=== PATIENT | female | born 1965 | race African-American/Black ===

== ENCOUNTER 2020-03-21 12:57 | Emergency (ER) | payer SELFPAY ==
[~2020-03-21] VITALS: Ht 162.6 cm; Wt 56.8 kg
[~2020-03-21 12:57] MED LIST: CLIN150C14 PO; HYDR12.58 PO; PENI500T PO; PRED20TA PO; TRAM-48 PO
[2020-03-21] MEDS ORDERED: diphenhydrAMINE 50 MG/ML VIAL IVP ONE (13:30)
[2020-03-21] MEDS ORDERED: cloNIDine HCL 0.1 MG TABLET PO ONE (13:30)
[2020-03-21] MEDS ORDERED: SMZ/TMP 800/160MG TABLET. PO ONE (13:30)
[2020-03-21] MEDS ORDERED: methylPREDNISolone SOD SUCC PF 125 MG/2 ML VIAL. IV ONE (13:30)
[2020-03-21] MEDS ORDERED: FAMOTIDINE 20 MG/2 ML VIAL IVP ONE (13:30)
[2020-03-21] MEDS ORDERED: IV NORMAL SALINE 1000ML BAG 1,000 ML IV ONE (13:30)
[2020-03-21] MEDS ORDERED: PRED50TA PO (16:07)
[2020-03-21] MEDS ORDERED: FAMO20TA5 PO (16:07)
[2020-03-21] MEDS ORDERED: DIPH25CA58 PO (16:07)
[2020-03-21] MEDS ORDERED: HYDR12.58 PO (16:07)
--- NOTE | 2020-03-21 16:07 | PHYS DOC ---
Past Medical History Past Medical History: Hypertension, Other Additional Past Medical Histor: uncontrolled Past Surgical History: Other Additional Past Surgical Histo: one ovary and one tube removed Smoking Status: Never Smoker Alcohol Use: Occasionally Drug Use: None General Adult EDM: Chief Complaint: EYE PROBLEMS HPI: HPI: Patient is a 54 year old female patient presenting to the ED today with left eye swelling that began 3 days ago after she got stung by a wasp. Patient denies any difficulty breathing or swallowing throat or tongue swelling. She is also requesting a refill for her blood pressure medication which she ran out a couple days ago. Review of Systems: Review of Systems: Constitutional: Denies fever or chills. [] Eyes: Reports left eye swelling from a wasp sting. Denies change in visual acuity. [] HENT: Denies nasal congestion or sore throat. [] Respiratory: Denies cough or shortness of breath. [] Cardiovascular: Denies chest pain or edema. [] GI: Denies abdominal pain, nausea, vomiting, bloody stools or diarrhea. [] : Denies dysuria. [] Musculoskeletal: Denies back pain or joint pain. [] Integument: Denies rash. [] Neurologic: Denies headache, focal weakness or sensory changes. [] Endocrine: Denies polyuria or polydipsia. [] Lymphatic: Denies swollen glands. [] Psychiatric: Denies depression or anxiety. [] Heart Score: Risk Factors: Risk Factors: DM, Current or recent (<one month) smoker, HTN, HLP, family history of CAD, obesity. Risk Scores: Score 0 - 3: 2.5% MACE over next 6 weeks - Discharge Home Score 4 - 6: 20.3% MACE over next 6 weeks - Admit for Clinical Observation Score 7 - 10: 72.7% MACE over next 6 weeks - Early Invasive Strategies Current Medications: Current Medications Medications (Trade) Dose Ordered Sig/Lyndon Start Time Stop Time Status Last Admin Dose Admin Clonidine HCl (Catapres) 0.2 mg 1X ONCE 03/21/20 13:30 03/21/20 13:39 DC 03/21/20 14:03 0.2 MG Diphenhydramine HCl (Benadryl) 25 mg 1X ONCE 03/21/20 13:30 03/21/20 13:39 DC 03/21/20 14:04 25 MG Famotidine (Pepcid Vial) 20 mg 1X ONCE 03/21/20 13:30 03/21/20 13:39 DC 03/21/20 14:04 20 MG Methylprednisolone Sodium Succinate (SOLU-Medrol 125MG VIAL) 125 mg 1X ONCE 03/21/20 13:30 03/21/20 13:39 DC 03/21/20 14:04 125 MG Sodium Chloride 1,000 ml @ 1,000 mls/hr 1X ONCE 03/21/20 13:30 03/21/20 14:29 DC 03/21/20 14:03 1,000 MLS/HR Trimethoprim/ Sulfamethoxazole (Bactrim Ds) 1 tab 1X ONCE 03/21/20 13:30 03/21/20 13:39 DC 03/21/20 14:03 1 TAB Allergies: Allergies: Allergies Coded Allergies Type Severity Reaction Last Updated Verified No Known Drug Allergies 06/04/15 No Physical Exam: PE: Constitutional: Well developed, well nourished, no acute distress, non-toxic appearance. [] HENT: Normocephalic, atraumatic, bilateral external ears normal, oropharynx moist, no oral exudates, nose normal. Airways open Eyes: PERRLA, EOMI, left exterior eyelid and upper cheek is moderately swollen, conjunctiva has slight erythema but does not appear infected. Neck: Normal range of motion, no tenderness, supple, no stridor. [] Cardiovascular:Heart rate regular rhythm, no murmur [] Lungs & Thorax: Bilateral breath sounds clear to auscultation [] Abdomen: Bowel sounds normal, soft, no tenderness, no masses, no pulsatile masses. [] Skin: Warm, dry, no erythema, no rash. [] Back: No tenderness, no CVA tenderness. [] Extremities: No tenderness, no cyanosis, no clubbing, ROM intact, no edema. [] Neurologic: Alert and oriented X 3, normal motor function, normal sensory function, no focal deficits noted. [] Psychologic: Affect normal, judgement normal, mood normal. [] Current Patient Data: Vital Signs: Vital Signs Date Time Temp Pulse Resp B/P (MAP) Pulse Ox O2 Delivery O2 Flow Rate FiO2 03/21/20 14:03 73 190/105 03/21/20 13:28 98.4 18 98 Room Air 98.4 EKG: EKG: [] Radiology/Procedures: Radiology/Procedures: [] Course & Med Decision Making: Course & Med Decision Making Pertinent Labs and Imaging studies reviewed. (See chart for details) This is a 54-year-old female patient presenting to the ED today with bee sting to the left upper eyelid 3 days ago. Patient was given Benadryl, Solu-Medrol, Pepcid and a liter of fluid. The swelling went down significantly. She was discharged with Pepcid, Benadryl and prednisone. She also requested a refill for her HCTZ which she takes for BP. BP were in the 200s over 100. Refill given, she will follow-up with the primary care doctor for more medications. Provided return precautions and discharged in stable condition. Emelyn Disclaimer: Emelyn Disclaimer: This electronic medical record was generated, in whole or in part, using a voice recognition dictation system. Departure Departure Impression: Primary Impression: Wasp sting Qualified Codes: T63.461A - Toxic effect of venom of wasps, accidental (unintentional), initial encounter Additional Impression: Medication refill Disposition: 01 HOME, SELF-CARE Condition: STABLE Referrals: NO PCP (PCP) follow up with your doctor in 1-2 weeks Patient Instructions: Bee, Wasp, or Hornet Sting Additional Instructions: Please take the prescribed medications as ordered. If your symptoms worsen come back to the ED. Follow-up with your doctor next week. Scripts Famotidine (FAMOTIDINE) 20 Mg Tablet 20 MG PO DAILY, #7 TAB Prov: DAMARIS JEFFERSON APRN 03/21/20 Diphenhydramine Hcl (BENADRYL) 25 Mg Capsule 1 CAP PO Q6HRS PRN for ALLERGIC REACTION, #30 CAP 0 Refills Prov: DAMARIS JEFFERSON APRN 03/21/20 Prednisone (PREDNISONE) 50 Mg Tablet 50 MG PO DAILY, #5 TAB Prov: DAMARIS JEFFERSON APRN 03/21/20 Hydrochlorothiazide (HYDROCHLOROTHIAZIDE TABLET) 12.5 Mg Tablet 12.5 MG PO DAILY for DIURETIC, #90 TAB 0 Refills Prov: DAMARIS JEFFERSON APRN 03/21/20 Justicifation of Admission Dx: Justifications for Admission: Justification of Admission Dx: N/A DAMARIS JEFFERSON APRN Mar 21, 2020 16:07
[2020-03-21 16:17] VITALS: BP 142/77
== END 2020-03-21 16:47 | disposition home or self-care (01) ==
LOC: ER 12:57
DX: T63.461A Toxic effect of venom of wasps, accidental (unintentional), initial encounter (principal); R60.0 Localized edema; L53.9 Erythematous condition, unspecified; I10 Essential (primary) hypertension; Z98.890 Other specified postprocedural states; Y92.89 Other specified places as the place of occurrence of the external cause
CPT/HCPCS: 96361; 96374; 96375; 99285; J1200; J2930; J3490; J7030